=== PATIENT | female | born 1990 | race Caucasian/White ===

== ENCOUNTER 2016-05-20 06:45 | Inpatient (IN) | payer MEDICAID ==
[~2016-05-20] VITALS: Ht 154.9 cm; Wt 76.4 kg
[2016-05-20 07:03] VITALS: Ht 154.9 cm; Wt 76.4 kg
[2016-05-20 07:05] VITALS: BP 128/83; PULSE 76
[2016-05-20] MEDS ORDERED: PREN1TAB17 PO (07:07)
[2016-05-20] MEDS ORDERED: RANI75TA13 PO (07:08)
[2016-05-20] MEDS ORDERED: IRON18TA PO (07:08)
[2016-05-20] MEDS ORDERED: OXYTOCIN 30 UNITS/LR 500 ML IV PRN ×2 (07:30→16:00)
[2016-05-20] MEDS ORDERED: METHYLERGONOVINE 0.2 MG INJ IM PRN ×2 (07:30→16:00)
[2016-05-20] MEDS ORDERED: LIDOCAINE 1% (MPF) 30 ML INJ INJ PRN (07:30)
[2016-05-20] MEDS ORDERED: MISOPROSTOL 200 MCG TAB PR PRN ×2 (07:30→16:00)
[2016-05-20] MEDS ORDERED: AMPICILLIN 2 GM/NS (PMX) 100 ML IV ONE (07:30)
[2016-05-20] MEDS ORDERED: IBUPROFEN 600 MG TAB PO PRN ×2 (07:30)
[2016-05-20] MEDS ORDERED: CARBOPROST 250 MCG INJ IM PRN ×2 (07:30→16:00)
[2016-05-20] MEDS ORDERED: OXYTOCIN 30 UNITS/LR 500 ML IV SCH ×4 (07:30)
[2016-05-20] MEDS ORDERED: ACETAMINOPHEN/CODEINE #3 TAB PO PRN ×2 (07:30→16:00)
[2016-05-20] MEDS ORDERED: BUTORPHANOL 2 MG INJ IV PRN (07:30)
[2016-05-20 07:41] LABS: HEMATOCRIT 34.9 % (37.0-47.0); HEMOGLOBIN 11.6 g/dl (12.0-16.0); MEAN CORPUSCULAR HEMOGLOBIN 31.1 pg (29.0-33.0); MEAN CORPUSCULAR HGB CONC 33.4 g/dl (32.0-37.0); MEAN CORPUSCULAR VOLUME 93.4 fl (82.0-101.0); MEAN PLATELET VOLUME 9.4 fl (7.4-10.4); PLATELET COUNT 245 10^3/UL (140-440); RED BLOOD COUNT 3.73 10^6/ul (4.20-5.40); RED CELL DISTRIBUTION WIDTH 14.6 % (11.5-14.5)
[2016-05-20] MEDS: LACTATED RINGER'S 1,000 ML IV SCH ×2 (07:42→08:24)
[2016-05-20 07:48] LABS: CONDITION 1; LH ANALYZER COMMENTS 1; SUSPECT 1
[2016-05-20 08:06] LABS: INR 0.88; PROTIME 11.9 Sec (12.2-14.2); PT RATIO 0.9
[2016-05-20 08:07] LABS: PARTIAL THROMBOPLASTIN TIME 26.1 Sec (25.0-35.0)
[2016-05-20] MEDS ORDERED: FENTAnyl 2MCG/ML-ROPIV 0.2% 100 ML ONE (08:10)
--- NOTE | 2016-05-20 08:21 | HP ---
Date/Time of Note Date/Time of Note DATE: 05/20/16 TIME: 08:20 OB - History Hx of Present Free Text/Dictation [id number] term preg. in labor Care: Good Care Ultrasounds: Normal mid trimester US Obstetrical Complications: None Medical Complications: None Past Family/Social History * Past Medical, Surgical, Family and Obstetric Histories reviewed from chart. OB Admission Exam Vital Signs Vital Signs Vital Signs Date Time Temp Pulse Resp B/P Pulse Ox O2 Delivery O2 Flow Rate FiO2 05/20/16 07:05 97.8 76 128/83 Room Air Physical Exam HEENT: WNL Heart: Rhythm Normal Lungs: Clear, Equal Abdomen: WNL Extremities: Normal Reflexes: Normal Intensity: Moderate Last 72 hours Lab Results CBC & BMP 05/20/16 07:10 OB Assessment/Plan Reason for admission: active labor Plan: Expectant Management YAKELIN KUNZ MD May 20, 2016 08:21
[2016-05-20] MEDS ORDERED: FENTAnyl 2MCG/ML-ROPIV 0.2% 100 ML BAG EPI SCH (10:00)
[2016-05-20] MEDS ORDERED: NALOXONE (0.4 MG/ML) INJ IV PRN (10:00)
[2016-05-20] MEDS ORDERED: EPHEDrine SULFATE 50 MG/5 ML SYG IV PRN (10:00)
[2016-05-20] MEDS ORDERED: ONDANSETRON 4 MG INJ IV PRN (10:00)
[2016-05-20 10:29] LABS: ANISOCYTOSIS 1+; EOSINOPHILS # 0.2 10^3/ul (0.0-0.5); LYMPHOCYTES # 1.9 10^3/ul (0.8-2.9); MONOCYTE # 1.2 10^3/ul (0.3-0.9); NEUTROPHIL # 13.8 10^3/ul (1.6-7.5); PLATELET ESTIMATE PLT APPEAR ADEQUATE
[2016-05-20 10:47] LABS: BARBITURATES NEGATIVE (NEGATIVE); BENZODIAZEPINES NEGATIVE (NEGATIVE); CANNABINOIDS NEGATIVE (NEGATIVE); COCAINE NEGATIVE (NEGATIVE); OPIATES NEGATIVE (NEGATIVE)
[2016-05-20] MEDS ORDERED: AMPICILLIN 1 GM/NS (PMX) 50 ML IV SCH (11:30)
--- NOTE | 2016-05-20 14:10 | DELSUM ---
Delivery Summary A-C Datetime Report Generated by CPN: 05/20/2016 14:09 DELIVERY PERSONNEL Pet Counselor: Cady Montalvo MATERNAL INFORMATION Delivery Anesthesia: Epidural Medications in Delivery: LR WITH 30 UNITS PITOCIN Estimated Blood Loss (ml): 350 Placenta Cultured: No Maternal Complications: None LABOR SUMMARY EDC: 05/26/2016 00:00 No. Babies in Womb: 0 Attempted: Yes Labor Anesthesia: Epidural LABOR INFORMATION Reason for Induction: Not Applicable Onset of Labor: 05/19/2016 23:00 Complete Dilatation: 05/20/2016 12:29 Oxytocin: N/A Group B Beta Strep: Done, Result Unknown Antibiotics # of Doses: 2 Antibiotics Time of Last Dose: 1133 Steroids Given: None Reason Steroids Not Administered: Not Applicable MEMBRANES Membranes Rupture Method: Artificial Rupture of Membranes: 05/20/2016 08:50 Length of Rupture (hr): 4.18 Amniotic Fluid Color: Clear Amniotic Fluid Amount: Moderate Amniotic Fluid Odor: Normal STAGES OF LABOR Stage 1 hr: 13 Stage 1 min: 29 Stage 2 hr: 0 Stage 2 min: 32 Stage 3 hr: 0 Stage 3 min: 3 Total Time in Labor hr: 14 Total Time in Labor min: 4 VAGINAL DELIVERY Episiotomy: None Laceration Extension: First Degree Laceration Type: Vaginal Laceration Repair: Yes Initial Vag Sponge Count: 20 Final Vag Sponge Count: 20 Initial Vag Sharps Count: 2 Final Vag Sharps Count: 2 Sponge Count Correct: Yes Sharps Count Correct: Yes BABY A INFORMATION Infant Delivery Date/Time: 05/20/2016 13:01 Method of Delivery: Vaginal Born in Route : No : N/A Forceps: N/A Vacuum Extraction: N/A Shoulder Dystocia : N/A SHOULDER DYSTOCIA BABY A Delivery Date/Time: 05/20/2016 13:01 PRESENTATION/POSITION BABY A Presentation: Cephalic Presentation: Cephalic Presentation: Cephalic Presentation: Cephalic Presentation: Cephalic Presentation: Cephalic Presentation: Cephalic Cephalic Presentation: Vertex Breech Presentation: N/A PLACENTA INFORMATION BABY A Placenta Delivery Time : 05/20/2016 13:04 Placenta Method of Delivery: Spontaneous Placenta Status: Delivered SCORES BABY A Heart Rate 1 min: >100 bpm Resp Effort 1 min: Good Cry Reflex Irritability 1 min: Cough/Sneeze/Pulls Away Muscle Tone 1 min: Active Motion Color 1 min: Body [place], Extremit Blue Resuscitation Effort 1 min: Tactile Stimulation SCORE 1 MIN: 9 Heart Rate 5 min: >100 bpm Resp Effort 5 min: Good Cry Reflex Irritability 5 min: Cough/Sneeze/Pulls Away Muscle Tone 5 min: Active Motion Color 5 min: Body [place], Extremit Blue Resuscitation Effort 5 min: Tactile Stimulation SCORE 5 MIN: 9 INFANT INFORMATION BABY A Gestational Age at Delivery: 39.1 Gestational Status: Full Term- 39- 40.6 Weeks Outcome : Liveborn Infant Condition : Stable Infant Sex: Female IDENTIFICATION/MEDS BABY A ID Band Number: [id number] ID Band Location: Right Leg; Left Arm Sensor Applied: Yes Sensor Number: [id number] Sensor Location : Cord Clamp Vitamin K Given : Not Given Erythromycin Given: Not Given WEIGHT/LENGTH BABY A Birthweight (gm): 3330 Infant Weight (lb): 7 Weight (oz): 5 Infant Length (in): 19.50 Length (cm): 49.53 CORD INFORMATION BABY A No. Cord Vessels: 3 Nuchal Cord : N/A Cord Blood Taken: Yes Infant Suction: Mouth; Nose ASSESSMENT BABY A Complications: None Physical Findings at Delivery: Molding of the Head; Skin Tags Physical Findings- Other: SKIN TAG BY LEFT NIPPLE Infant Respirations: Appears Normal Trading Analyst/ALS Called : No Infant Care By: JERRELL Transferred To: Remains with Mother
--- NOTE | 2016-05-20 14:10 | OPRPT ---
Intraop Record Datetime Report Generated by CPN: 05/20/2016 14:09 Datetime: 05/20/2016 07:07 Drug Allergies/Reactions: No Known Allergies (05/20/2016)
--- NOTE | 2016-05-20 15:07 | LDN ---
Date/Time of Note Date/Time of Note DATE: 05/20/16 TIME: 15:04 Delivery Summary term preg. nsd no complication Placenta Delivered: Spontaneously Meconium: none Perineum intact?: Yes Anesthesia type: None Estimated blood loss: 350 Sponge & Needle done & correct: Yes All needle counts correct: Yes Any foreign bodies felt in the: No Problems: YAKELIN KUNZ MD May 20, 2016 15:07
[2016-05-20 15:20] VITALS: BP 113/59; PULSE 99; RESP 19
[2016-05-20] MEDS: LACTATED RINGER'S 1,000 ML IV* SCH ×2 (15:51→23:51)
[2016-05-20] MEDS ORDERED: MAGNESIUM HYDROXIDE 30ML CUP PO PRN (16:00)
[2016-05-20] MEDS ORDERED: ACETAMINOPHEN 325 MG TAB PO PRN (16:00)
[2016-05-20] MEDS ORDERED: DIPHENHYDRAMINE 25 MG CAP PO PRN (16:00)
[2016-05-20] MEDS ORDERED: ZOLPIDEM 5 MG TAB PO PRN (16:00)
[2016-05-20] MEDS: WITCH HAZEL/GLYCERIN PAD PR PRN (16:43)
[2016-05-20] MEDS: BENZOCAINE 20% 56 ML SPRAY TOP PRN (16:43)
[2016-05-20] MEDS: LANOLIN 7 GM TUBE TOP PRN (16:43)
[2016-05-20] MEDS: OXYTOCIN 30 UNITS/LR 500 ML IV SCH ×2 (16:43→19:51)
[2016-05-20 17:17] VITALS: BP 126/69; PULSE 114; RESP 18
[2016-05-20] MEDS: IBUPROFEN 800 MG TAB PO SCH (18:06)
[2016-05-20 21:00] VITALS: BP 107/56; PULSE 96; RESP 16
[2016-05-20] MEDS: SENNA/DOCUSATE NA (8.6MG/50MG) TAB PO PRN (22:03)
[2016-05-21] VITALS: BP 110/60; PULSE 89; RESP 20
[2016-05-21] MEDS: IBUPROFEN 800 MG TAB PO SCH ×4 (01:18→17:54)
[2016-05-21 04:00] VITALS: BP 111/65; PULSE 91; RESP 18
[2016-05-21 07:28] LABS: BASOPHIL # 0.1 10^3/ul (0.0-0.1); BASOPHILS % 0.5 % (0.0-2.0); EOSINOPHILS # 0.1 10^3/ul (0.0-0.5); EOSINOPHILS % 0.4 % (0.0-7.0); HEMOGLOBIN 11.1 g/dl (12.0-16.0); LYMPHOCYTES % 10.6 % (15.0-51.0); MEAN CORPUSCULAR HEMOGLOBIN 31.4 pg (29.0-33.0); MEAN CORPUSCULAR HGB CONC 33.5 g/dl (32.0-37.0); MEAN CORPUSCULAR VOLUME 93.7 fl (82.0-101.0); MEAN PLATELET VOLUME 8.4 fl (7.4-10.4); MONOCYTE # 1.1 10^3/ul (0.3-0.9); MONOCYTES % 5.8 % (0.0-11.0); NEUTROPHIL # 15.4 10^3/ul (1.6-7.5); NEUTROPHILS % 82.7 % (39.0-77.0); PLATELET COUNT 217 10^3/UL (140-440); RED BLOOD COUNT 3.52 10^6/ul (4.20-5.40); RED CELL DISTRIBUTION WIDTH 14.9 % (11.5-14.5); UNCORRECTED WBC 18.6 10^3/ul (4.8-10.8); WHITE BLOOD COUNT 18.6 10^3/ul (4.8-10.8)
[2016-05-21 07:34] LABS: CONDITION 1; LH ANALYZER COMMENTS 1
[2016-05-21] MEDS: LACTATED RINGER'S 1,000 ML IV* SCH ×3 (07:51→23:51)
[2016-05-21 08:10] VITALS: BP 110/63; PULSE 84; RESP 16
--- NOTE | 2016-05-21 17:38 | PN ---
Date/Time of Note Date/Time of Note DATE: 05/21/16 TIME: 17:35 OB Subjective Subjective Subjective Denies any complaint. Vaginal bleeding in the amount of heavy menses. Breast feeding. Feels soreness in the perineum. uses anesthetic spray that helps with the soreness. OB Objective Objective Objective GA: A&O, NAD Abdomen: Soft, non tender, fundus at 2 cm below the umbilicus Extremities: no calf tenderness, no click, no edema Breasts: No engorgement, no fissure, no erythema Hematology - 72 Hrs Test 05/20/16 07:10 05/21/16 07:15 Anisocytosis 1+ Basophils # 10^3/ul (0.0-0.1) 0.110^3/ul (0.0-0.1) Basophils % % (0.0-2.0) 0.5% (0.0-2.0) Blood Morphology Comment Eosinophils # 0.210^3/ul (0.0-0.5) 0.110^3/ul (0.0-0.5) Eosinophils % 1.0% (0.0-7.0) 0.4% (0.0-7.0) Hematocrit 34.9% (37.0-47.0) L 33.0% (37.0-47.0) L Hemoglobin 11.6g/dl (12.0-16.0) L 11.1g/dl (12.0-16.0) L Lymphocytes # 1.910^3/ul (0.8-2.9) 2.010^3/ul (0.8-2.9) Lymphocytes % 11.0% (15.0-51.0) L 10.6% (15.0-51.0) L Mean Corpuscular Hemoglobin 31.1pg (29.0-33.0) 31.4pg (29.0-33.0) Mean Corpuscular Hemoglobin Concent 33.4g/dl (32.0-37.0) 33.5g/dl (32.0-37.0) Mean Corpuscular Volume 93.4fl (82.0-101.0) 93.7fl (82.0-101.0) Mean Platelet Volume 9.4fl (7.4-10.4) 8.4fl (7.4-10.4) Monocytes # 1.210^3/ul (0.3-0.9) H 1.110^3/ul (0.3-0.9) H Monocytes % 7.0% (0.0-11.0) 5.8% (0.0-11.0) Neutrophils # 13.810^3/ul (1.6-7.5) H 15.410^3/ul (1.6-7.5) H Neutrophils % 81.0% (39.0-77.0) H 82.7% (39.0-77.0) H Nucleated Red Blood Cells # 10^3/ul (0.0-0.0) 0.010^3/ul (0.0-0.0) Nucleated Red Blood Cells % /100WBC (0.0-0.0) 0.0/100WBC (0.0-0.0) Platelet Count 54296^3/UL (140-440) 83901^3/UL (140-440) Platelet Estimate PLT APPEAR ADEQUATE Red Blood Count 3.7310^6/ul (4.20-5.40) L 3.5210^6/ul (4.20-5.40) L Red Cell Distribution Width 14.6% (11.5-14.5) H 14.9% (11.5-14.5) H White Blood Count 17.010^3/ul (4.8-10.8) H 18.610^3/ul (4.8-10.8) H OB Assessment/Plan Other Assessment: PPD #1 S/p Doing well Expectant management Anticipate DC home tomorrow MALATHI MICHEL MD May 21, 2016 17:38
[2016-05-21 20:18] VITALS: BP 123/77; PULSE 87; RESP 18
[2016-05-21] MEDS: WITCH HAZEL/GLYCERIN PAD PR PRN (22:42)
[2016-05-22] MEDS: IBUPROFEN 800 MG TAB PO SCH ×3 (00:31→13:46)
[2016-05-22] MEDS: LACTATED RINGER'S 1,000 ML IV* SCH (07:51)
[2016-05-22 08:30] VITALS: BP 106/57; PULSE 77; RESP 18
[2016-05-22] MEDS ORDERED: VARICELLA VACCINE LIVE/PF 1,350 UNIT/0.5 ML ML SC* ONE (09:00)
[2016-05-22] MEDS ORDERED: MEASLES,MUMPS,RUBELLA VACCINE INJ SC* ONE (09:00)
[2016-05-22] MEDS ORDERED: DIPHTH/TET/ACEL PERTUSS (ADULT) 0.5 ML VIAL IM* ONE (09:00)
--- NOTE | 2016-05-22 09:09 | DS ---
Date/Time of Note Date/Time of Note DATE: 05/22/16 TIME: 09:03 Obstetrical Discharge Record Final Diagnosis Final Diagnosis: delivered Vaginal Delivery Obstetrical Delivery: Spontaneous Condition on Discharge Physical Assessment Last Vitals: Current Medications Medications (Trade) Dose Ordered Sig/Shahzad Route PRN Reason Start Time Stop Time Status Last Admin Dose Admin Lactated Ringer's (Lr) 1,000 ml @ 125 mls/hr Q8H IV 05/20/16 07:24 05/20/16 15:55 DC 05/20/16 08:24 Butorphanol Tartrate (Stadol) 2 mg Q2H PRN IV PAIN 05/20/16 07:30 05/20/16 15:55 DC Lidocaine 30 ml 30 ml ONCE PRN INJ EPISIOTOMY/TEARING 05/20/16 07:30 05/20/16 15:55 DC Oxytocin/Lactated Ringer's 500 ml @ 125 mls/hr ONCE -MAY REPEAT X1 IV 05/20/16 07:30 05/20/16 15:55 DC Oxytocin/Lactated Ringer's 500 ml @ 125 mls/hr ONCE IV 05/20/16 07:30 05/20/16 15:55 DC 05/20/16 13:28 Ibuprofen 600 mg 600 mg ONCE PRN PO Mild Pain (Pain Score 1-3) 05/20/16 07:30 05/20/16 15:55 DC Oxytocin/Lactated Ringer's 500 ml @ 0 mls/hr ONCE PRN IV For Hemorrhage Management 05/20/16 07:30 05/20/16 15:55 DC Methylergonovine Maleate (Methergine) 0.2 mg ONCE PRN IM VAGINAL BLEEDING 05/20/16 07:30 05/20/16 15:55 DC Carboprost Tromethamine (Hemabate) 250 mcg ONCE PRN IM VAGINAL BLEEDING 05/20/16 07:30 05/20/16 15:55 DC Misoprostol 1000 mcg 1,000 mcg ONCE PRN AL VAGINAL BLEEDING 05/20/16 07:30 05/20/16 15:55 DC Ampicillin 100 ml @ 100 mls/hr ONCE ONCE IV 05/20/16 07:30 05/20/16 08:29 DC 05/20/16 07:44 Ampicillin 50 ml @ 100 mls/hr Q4H IV 05/20/16 11:30 05/20/16 15:53 DC 05/20/16 11:33 Oxytocin/Lactated Ringer's 500 ml @ 125 mls/hr ONCE -MAY REPEAT X1 IV 05/20/16 07:30 05/20/16 15:53 DC 05/20/16 13:03 Oxytocin/Lactated Ringer's 500 ml @ 125 mls/hr ONCE IV 05/20/16 07:30 05/20/16 15:53 DC Ibuprofen (Motrin) 600 mg ONCE PRN PO Mild Pain (Pain Score 1-3) 05/20/16 07:30 05/20/16 15:53 DC Acetaminophen/ Codeine Phosphate 2 tab 2 tab ONCE PRN PO Moderate to Severe Pain (4-10) 05/20/16 07:30 05/20/16 15:53 DC Fentanyl/ Ropivacaine 100 ml @ ud STK-MED ONCE .ROUTE 05/20/16 08:10 05/20/16 08:11 DC Naloxone HCl (Narcan) 0.1 mg Q2M PRN IV FOR RESP RATE 8 OR LESS 05/20/16 10:00 05/20/16 15:53 DC Ondansetron HCl (Zofran Inj) 4 mg Q6H PRN IV NAUSEA AND/OR VOMITING 05/20/16 10:00 05/20/16 15:53 DC Fentanyl/ Ropivacaine 100 ml EPIDURAL INFUSION EPI 05/20/16 10:00 05/20/16 15:53 DC Ephedrine Sulfate 5 mg 5 mg PRN PRN IV BLOOD PRESSURE SUPPORT 05/20/16 10:00 05/20/16 15:53 DC Oxytocin/Lactated Ringer's 500 ml @ 125 mls/hr Q4H IV 05/20/16 15:51 05/20/16 23:50 DC 05/20/16 16:43 Lactated Ringer's (Lr) 1,000 ml @ 125 mls/hr Q8H IV* 05/20/16 15:51 Ibuprofen (Motrin) 800 mg Q6 PO 05/20/16 18:00 05/22/16 06:46 Acetaminophen/ Codeine Phosphate (Tylenol No.3) 2 tab Q4H PRN PO PAIN LEVEL 6-10 05/20/16 16:00 Diphenhydramine HCl (Benadryl) 25 mg Q6H PRN PO PRURITUS 05/20/16 16:00 Zolpidem Tartrate (Ambien) 10 mg QHS PRN PO INSOMNIA 05/20/16 16:00 Senna/Docusate Sodium (Senokot-S) 1 tab BID PRN PO CONSTIPATION 05/20/16 16:00 05/20/16 22:03 Magnesium Hydroxide (Milk Of Mag) 30 ml Q12H PRN PO CONSTIPATION 05/20/16 16:00 Witch Preeti/ Glycerin (Tucks Pads) 1 pad BEDSIDE MEDICATION PRN AL HEMORRHOID/EPISIOTMY PAIN 05/20/16 16:00 05/21/16 22:42 Benzocaine (Dermoplast [place]) 1 spray BEDSIDE MEDICATION PRN TOP HEMORRHOID/EPISIOTMY PAIN 05/20/16 16:00 05/20/16 16:43 Lanolin (Hen-A-Kecqul) 1 applic BEDSIDE MEDICATION PRN TOP BEDSIDE FOR SAMEER TO NIPPLES 05/20/16 16:00 05/20/16 16:43 Measles/Mumps/ Rubella Vaccine Live (Mmr Ii Vaccine) 0.5 ml ONCE ONCE SC* 05/22/16 09:00 05/22/16 09:01 DC Diphtheria/ Tetanus/Acell Pertussis (Adacel) 0.5 ml ONCE ONCE IM* 05/22/16 09:00 05/22/16 09:01 DC Varicella Virus Vaccine Live (Varivax Vaccine With Diluent) 1,350 unit ONCE ONCE SC* 05/22/16 09:00 05/22/16 09:01 DC Acetaminophen 650 mg 650 mg Q4H PRN PO ELEVATED TEMPERATURE 05/20/16 16:00 Oxytocin/Lactated Ringer's 500 ml @ 0 mls/hr ONCE PRN IV For Hemorrhage Management 05/20/16 16:00 Methylergonovine Maleate (Methergine) 0.2 mg ONCE PRN IM VAGINAL BLEEDING 05/20/16 16:00 Carboprost Tromethamine (Hemabate) 250 mcg ONCE PRN IM VAGINAL BLEEDING 05/20/16 16:00 Misoprostol (Cytotec) 1,000 mcg ONCE PRN AL VAGINAL BLEEDING 05/20/16 16:00 Voiding: Yes Bowel Movement: Yes Breast: Soft, non-tender Fundus: Firm Episiotomy: Healin well Calf Tenderness: No Patient Condition: Good BLANCHE HUTTON MD May 22, 2016 09:09
[2016-05-22] MEDS: LANOLIN 7 GM TUBE TOP PRN (09:47)
[2016-05-22] MEDS: BENZOCAINE 20% 56 ML SPRAY TOP PRN (09:47)
[2016-05-22] MEDS: SENNA/DOCUSATE NA (8.6MG/50MG) TAB PO PRN (09:47)
[2016-05-22 14:53] LABS: ADD UMIC YES; URINE BILIRUBIN (Dip) NEGATIVE (NEGATIVE); URINE BLOOD (Dip) 3+ (NEGATIVE); URINE COLOR LT. YELLOW (YELLOW); URINE GLUCOSE (Dip) NEGATIVE (NEGATIVE); URINE KETONES (Dip) NEGATIVE (NEGATIVE); URINE LEUKOCYTE ESTERASE (Dip) TRACE (NEGATIVE); URINE NITRITE (Dip) NEGATIVE (NEGATIVE); URINE TOTAL PROTEIN (Dip) 1+ (NEGATIVE); URINE UROBILINOGEN (Dip) 0.2 E.U./dL (0.1-1.0)
[2016-05-22 15:21] LABS: BACTERIA,URINE MODERATE; SQUAMOUS EPITHELIAL CELL,UR MODERATE; URINE RBCS >50 /HPF (0)
== END 2016-05-22 18:11 | disposition home or self-care (01) | DRG 775 ==
LOC: L-D 06:45 → OBT 06:45 → L-D 07:00 → OBT 07:00 → L-D 08:46 → PP1 14:59
PROVIDERS: ADMIT Obstetrics & Gynecology; ATTEND Obstetrics & Gynecology
PROC: 10E0XZZ Delivery of Products of Conception, External Approach (ICD-10-PCS; principal; 2016-05-20)
DX: O80 Encounter for full-term uncomplicated delivery (principal); Z37.0 Single live birth; Z3A.39 39 weeks gestation of pregnancy
CPT/HCPCS: 62319; 80307; 81001; 81003; 85025; 85610; 85730; 86592; 86900; 86901; 87340; 90715; 90716; G0463; J0290; J2590; J3010; J7120